=== PATIENT | male | born 1960 | race Caucasian/White ===

== ENCOUNTER → 2017-03-23 | Outpatient (CLI) | payer BC ==
[~2017-03-23] MED LIST: PANT40TA5 PO; SIMVISTATIN
--- NOTE | 2017-03-23 11:58 | RAD ---
Examination: Ultrasound abdomen limited History: History of abdominal pain Comparison: None available Findings: The visualized pancreas grossly appears unremarkable. No evidence of gallstones identified. The gallbladder wall thickness measures 2.5 mm. The common bile duct measures 3.1 mm in transverse dimension. The echogenicity of the liver grossly appears unremarkable. The liver measures 17.4 cm. The right kidney measures 11.3 cm. The visualized IVC appears patent. Impression: 1. Unremarkable visualized exam.
== END | disposition home or self-care (01) ==
LOC: US 10:44
PROVIDERS: ATTEND Physician Assistant Medical
DX: R10.9 Unspecified abdominal pain (principal)
CPT/HCPCS: 76705

== ENCOUNTER → 2017-08-13 | Outpatient (CLI) | payer BC ==
--- NOTE | 2017-08-13 12:27 | RAD ---
Cervical spine, 3 views, 08/13/2017: History: Cervical spine fusion There is an anterior fixation plate attached to the C5, C6 and C7 vertebral bodies via 2 screws at each level. Partially radiopaque disc spacers are present at C5-6 and C6-7. The vertebral alignment through this region appears anatomic. There is moderate anterior marginal spurring at C3-4 and C4-5. There is moderate posterior marginal spurring at C5-6. There are mild degenerative changes involving scattered facet joints bilaterally. There is slight reversal of the normal cervical lordosis. No fracture or dislocation is evident. The prevertebral soft tissues are unremarkable. IMPRESSION: 1. Changes of an anterior spinal fusion and instrumentation from C5 through C7. 2. Mild to moderate scattered degenerative changes. 3. Slight reversal of the normal cervical lordosis.
== END | disposition home or self-care (01) ==
LOC: DXRAD 11:42
PROVIDERS: ATTEND Nurse Practitioner Adult Health
DX: M47.892 Other spondylosis, cervical region (principal); Z98.1 Arthrodesis status
CPT/HCPCS: 72040

== ENCOUNTER → 2018-10-04 | Outpatient (CLI) | payer BC ==
--- NOTE | 2018-10-04 16:05 | RAD ---
Chest, PA and Lateral: Technique: PA and lateral views of the chest were obtained. History: Chronic chest pain. Comparison: 06/21/2015. Findings: The heart and pulmonary vasculature appear within normal limits. The lungs are clear. The pleural margins are clear. Impression: No acute chest process is seen. Electronically signed by: Trevin Ayala MD (10/04/2018 4:02 PM) [id number]
== END | disposition home or self-care (01) ==
LOC: PMG 15:19
PROVIDERS: ATTEND Physician Assistant Medical
DX: R07.9 Chest pain, unspecified (principal); G89.29 Other chronic pain
CPT/HCPCS: 71046

== ENCOUNTER → 2018-10-09 | Outpatient (CLI) | payer BC ==
--- NOTE | 2018-10-09 08:32 | CARD ---
MR#: [id number] Date of Study: 10/09/2018 Ordering Physician: PATITO RODRIGUEZ, Referring Physician: PATITO RODRIGUEZ Tech: Juliana Ny RDCS APPROVED REPORT EXAM: Two-dimensional and M-mode echocardiogram with Doppler and color Doppler. Other Information Quality : Good INDICATION Chest Pain RISK FACTORS Obesity 2D DIMENSIONS RVDd2.4 (2.9-3.5cm)Left Atrium(2D)2.9 (1.6-4.0cm) IVSd0.8 (0.7-1.1cm)Aortic Root(2D)3.2 (2.0-3.7cm) LVDd5.3 (3.9-5.9cm)LVOT Diameter2.1 (1.8-2.4cm) PWd0.9 (0.7-1.1cm)LVDs3.5 (2.5-4.0cm) FS (%) 34.3 %SV83.6 ml LVEF(%)62.9 (>50%) Aortic Valve AoV Peak Cyril.128.1cm/sAoV VTI24.3cm AO Peak GR.6.6mmHgLVOT Peak Cyril.107.2cm/s LVOT VTI 21.35cmAO Mean GR.4mmHg FARRAH (VMAX)2.46yq1HVS (VTI)2.90cm2 Mitral Valve MV E Jxtduide05.7cm/sMV DECEL [id number] MV A Xvxjlwlf23.4cm/sE/A Ratio1.1 Pulmonary Vein S1 Sqwplntd85.9cm/sD2 Khotfxkg88.7cm/s LEFT VENTRICLE The left ventricle is normal size. There is normal left ventricular wall thickness. The left ventricu lar systolic function is normal. The Ejection Fraction is 55-60%. There is normal LV segmental wall m otion. Transmitral Doppler flow pattern is Grade II-pseudonormal filling dynamics. RIGHT VENTRICLE The right ventricle is normal size. The right ventricular systolic function is normal. ATRIA The left atrium size is normal. The right atrium size is normal. The interatrial septum is intact wit h no evidence for an atrial septal defect or patent foramen ovale as noted on 2-D or Doppler imaging. AORTIC VALVE The aortic valve is normal in structure and function. Doppler and Color Flow revealed no significant aortic regurgitation. There is no significant aortic valvular stenosis. MITRAL VALVE The mitral valve is normal in structure and function. There is no evidence of mitral valve prolapse. There is no mitral valve stenosis. Doppler and Color Flow revealed no mitral valve regurgitation note d. TRICUSPID VALVE The tricuspid valve is normal in structure and function. Doppler and Color Flow revealed no tricuspid valve regurgitation noted. There is no tricuspid valve stenosis. PULMONIC VALVE The pulmonic valve is not well visualized. Doppler and Color Flow revealed no pulmonic valvular regur gitation. There is no pulmonic valvular stenosis. GREAT VESSELS The aortic root is normal in size. The ascending aorta is normal in size. The IVC is normal in size a nd collapses >50% with inspiration. PERICARDIAL EFFUSION There is no evidence of significant pericardial effusion. Critical Notification Critical Value: No <Conclusion> The left ventricular systolic function is normal. The Ejection Fraction is 55-60%. There is normal LV segmental wall motion. No significant valvular abnormalities. There is no evidence of significant pericardial effusion. Signed by : Ladarius Lorenzo, Electronically Approved : 10/09/2018 08:31:43
== END | disposition home or self-care (01) ==
LOC: ECHO 07:49
PROVIDERS: ATTEND Physician Assistant Medical
DX: R07.9 Chest pain, unspecified (principal); E66.9 Obesity, unspecified
CPT/HCPCS: 93306

== ENCOUNTER → 2020-09-16 | Outpatient (CLI) | payer BC ==
[~2020-09-16] MED LIST changes: -PANT40TA5 PO; +PANT40TA6 PO
--- NOTE | 2020-09-16 11:42 | RAD ---
CT THORAX WO INDICATION: Cough, smoker 40 yrs., quit 2 months ago. Family hx lung cancer. COMPARISON STUDY: Chest radiograph 10/04/2018. TECHNIQUE: Unenhanced axial images were obtained through the lungs and upper abdomen. Coronal and sa gittal multiplanar reconstructions were also obtained. PQRS compliance statement: One or more of the following individualized dose reduction techniques were utilized for this examinat ion: 1. Automated exposure control 2. Adjustment of the mA and/or kV according to patient size 3. Use of iterative reconstruction technique FINDINGS: Lungs and Airways: No pulmonary mass or consolidation. Normal central airways. Pleura: The pleural spaces are normal. Heart and Mediastinum: The visualized thyroid gland is normal in size and attenuation. No axillary or supraclavicular lymphadenopathy. No mediastinal, hilar or retrocrural lymphadenopathy. Normal cardia c size. No pericardial effusion. Coronary artery atherosclerotic disease. Atherosclerosis of the thor acic aorta. Abdomen: The visualized abdominal organs demonstrate no abnormality. Bones and Soft Tissues: The visualized skeletal structures and soft tissues of the chest wall are wit hin normal limits. IMPRESSION: 1. No pulmonary mass or consolidation. 2. No thoracic lymphadenopathy. 3. Coronary artery atherosclerotic disease. Electronically signed by: Abel Martínez MD (09/16/2020 11:40 AM) [id number]
== END ==
LOC: CT 10:47
PROVIDERS: ATTEND Physician Assistant Medical
DX: R05 Cough (principal); I70.0 Atherosclerosis of aorta; F17.200 Nicotine dependence, unspecified, uncomplicated; Z80.1 Family history of malignant neoplasm of trachea, bronchus and lung
CPT/HCPCS: 71250

== ENCOUNTER → 2021-03-23 | Outpatient (CLI) | payer BC ==
--- NOTE | 2021-03-24 09:36 | RAD ---
EXAM: XR HAND_RIGHT 3 VIEWS 03/23/2021 3:31 PM CLINICAL INDICATION: Right hand pain COMPARISON: None TECHNIQUE: 3 views of the right hand FINDINGS: No acute fracture. Alignment is normal. Minimal joint space narrowing with tiny osteophyte s and subchondral cysts at the first MCP joint. No other evidence of arthritis. No erosions. Bone min eralization is normal. No soft tissue abnormality. 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 Otherwise normal. Electronically signed by: Carri Graham MD (03/24/2021 9:33 AM) [id number]
== END ==
LOC: RAD 15:28
PROVIDERS: ATTEND Physician Assistant Medical
DX: M18.11 Unilateral primary osteoarthritis of first carpometacarpal joint, right hand (principal)
CPT/HCPCS: 73130